=== PATIENT | female | born 1960 | race Caucasian/White ===

== ENCOUNTER → 2022-03-02 | Outpatient (CLI) | payer BC ==
[~2022-03-02] MED LIST: NORCO 325 MG-51 TAB PO; PRINIVIL10 MG PO; ZOCOR 20MG20 MG PO
== END ==
LOC: MC.RAD 08:26
DX: R92.0 Mammographic microcalcification found on diagnostic imaging of breast (principal)

== ENCOUNTER → 2022-03-30 | Outpatient (CLI) | payer BC | LOC: MC.RAD 07:59 | DX: R92.0 Mammographic microcalcification found on diagnostic imaging of breast (principal); N64.89 Other specified disorders of breast ==

== ENCOUNTER 2022-04-14 07:03 | Day surgery (SDC) | payer BC ==
[2022-04-14] VITALS (12 sets, daily range): BP systolic 99–148; BP diastolic 53–88; PULSE 64–92; TEMP 97.7–98
[~2022-04-14] VITALS: Ht 165.1 cm; Wt 100.6 kg
[2022-04-14] MEDS ORDERED: PRINIVIL10 MG PO (07:57)
[2022-04-14] MEDS ORDERED: ZOCOR 20MG20 MG PO (07:58)
--- NOTE | 2022-04-14 18:32 | NUR ---
Patient arrived to the floor from the PACU at 1640, with 2 LYNNE drains draining serousanguinous fluids, with incision at mid anterior chest and with one small above it, with gauze wrapped with jerrod wrap, at bedside, patient alert and oriented, questions answered, will continue to monitor.
--- NOTE | 2022-04-14 19:14 | NUR ---
RECEIVED CHANGE OF SHIFT REPORT FROM DAY SHIFT RN.
--- NOTE | 2022-04-14 19:42 | NUR ---
DENIES CHEST PAIN/SOA AT THIS TIME. DENIES INCISIONAL PAIN OR NAUSEA. RESTING QUIETLY WITH EYES CLOSED. ON ROOM AIR. IV FLUIDS INFUSING PER GRAVITY WITH NO PROBLEMS.
[2022-04-15 04:15] VITALS: BP 103/61; PULSE 66; TEMP 98.1
--- NOTE | 2022-04-15 05:55 | NUR ---
PATIENT SLEPT MAJORITY OF NIGHT, UP TO BATHROOM WITH NO PROBLEMS. LYNNE DRAINS X2 IN PLACE AND COMPRESSED PER D.O., SEE OUTPUT PER [facility]. NO ADDITIONAL PAIN MEDS GIVEN AFTER TYLENOL GIVEN PRIOR TO HS.
--- NOTE | 2022-04-15 06:56 | NUR ---
CHANGE OF SHIFT REPORT GIVEN TO DAY SHIFT RNJAIMIE.
[2022-04-15 07:34] VITALS: BP 97/57; TEMP 98.1
[2022-04-15] MEDS ORDERED: NORCO 325 MG-51 TAB PO (08:38)
--- NOTE | 2022-04-15 09:41 | NUR ---
Initial visit; Patient states she is doing well and thanked Card Stripper for stopping in. Patient is very pleasant and was receptive to Card Stripper keeping her in her prayers. Card Stripper offered God's blessings to Kirstin.
--- NOTE | 2022-04-15 10:17 | NUR ---
Manager Forensic met with patient to discuss discharge planning. Patient lives in [place] with her , Munir (ph#[phone]) who is at bedside. Patient sees LAURIE Hunter for primary care and obtains medications through [facility] in [place]. Patient does not use any DME and is independent with [facility]. Patient states her , Munir is DPOA-HC. Patient plans to return home at time of discharge.
--- NOTE | 2022-04-15 10:42 | NUR ---
PATIENT DISCHARGE INSTRUCTIONS PROVIDED. FOLLOW UP APPOINTMENTS DISCUSSED. PATIENT EDUCATION GIVEN. PATIENT INSTRUCTED ON CARE OF LYNNE DRAINS. PATIENT DENIES ANY QUESTIONS OR CONCERNS. IV DC'D. PATIENT ESCORTED OUT VIA WHEELCHAIR.
== END 2022-04-15 10:40 | disposition home or self-care (01) ==
LOC: SDCO 07:03 → SURG 17:00 → SDCO 04-15 10:40
DX: C50.911 Malignant neoplasm of unspecified site of right female breast (principal); E66.01 Morbid (severe) obesity due to excess calories; Z68.41 Body mass index [BMI] 40.0-44.9, adult; I10 Essential (primary) hypertension
CPT/HCPCS: A4648; A9520; J0690; J1100; J1170; J2250; J2405; J2704; J3010; J7120